=== PATIENT | male | born 1935 | race Native Hawaiian/Other Pacific Islander ===

== ENCOUNTER 2022-06-20 10:51 | Emergency (ER) | payer MEDICARE, OTHER ==
[~2022-06-20] VITALS: Ht 180.3 cm; Wt 90.9 kg
[2022-06-20] MEDS ORDERED: LORA10TA7 PO (10:59)
[2022-06-20] MEDS ORDERED: ASPI-1450 PO (10:59)
[2022-06-20] MEDS ORDERED: TAMS-13 PO (10:59)
[2022-06-20] MEDS ORDERED: LOSA-382 PO (10:59)
[2022-06-20] MEDS ORDERED: PRAV20TA4 PO (10:59)
[2022-06-20] MEDS ORDERED: AMLO-258 PO (10:59)
[2022-06-20] MEDS ORDERED: GABA-1216 PO (10:59)
[2022-06-20] MEDS ORDERED: METF-1211 PO (10:59)
[2022-06-20] MEDS ORDERED: METO25 PO (10:59)
[2022-06-20] MEDS ORDERED: HYDR10TA31 PO (10:59)
[2022-06-20] MEDS ORDERED: BACITRACIN 0.9 GM PACKET OINTMENT TP ONE (12:45)
[2022-06-20] MEDS ORDERED: ACETAMINOPHEN 500 MG TABLET PO ONE (12:45)
[2022-06-20 14:15] VITALS: BP 159/73
[2022-06-20] MEDS ORDERED: MUPI15CR12 TP (16:23)
== END 2022-06-20 16:29 | disposition home or self-care (01) ==
LOC: EMS 11:12
DX: S01.01XA Laceration without foreign body of scalp, initial encounter (principal); S30.0XXA Contusion of lower back and pelvis, initial encounter; E11.9 Type 2 diabetes mellitus without complications; E78.00 Pure hypercholesterolemia, unspecified; I10 Essential (primary) hypertension; N40.0 Benign prostatic hyperplasia without lower urinary tract symptoms; W01.10XA Fall on same level from slipping, tripping and stumbling with subsequent striking against unspecified object, initial encounter; Y93.01 Activity, walking, marching and hiking; Y92.89 Other specified places as the place of occurrence of the external cause; Y99.8 Other external cause status
CPT/HCPCS: 70450; 72070; 72100; 82962; 99284

== ENCOUNTER 2022-06-22 12:54 | Emergency (ER) | payer MEDICARE, OTHER ==
[~2022-06-22] VITALS: Ht 167.6 cm; Wt 77.3 kg
[~2022-06-22 12:54] MED LIST: AMLO-258 PO; ASPI-1450 PO; GABA-1216 PO; HYDR10TA31 PO; LORA10TA7 PO; LOSA-382 PO; METF-1211 PO; METO25 PO; MUPI15CR12 TP; PRAV20TA4 PO; TAMS-13 PO
[2022-06-22 12:57] VITALS: BP 158/74
== END 2022-06-22 14:37 | disposition home or self-care (01) ==
LOC: EMS 13:12
DX: S01.01XA Laceration without foreign body of scalp, initial encounter (principal); E11.9 Type 2 diabetes mellitus without complications; E78.00 Pure hypercholesterolemia, unspecified; I10 Essential (primary) hypertension; N40.0 Benign prostatic hyperplasia without lower urinary tract symptoms; X58.XXXA Exposure to other specified factors, initial encounter; Y93.89 Activity, other specified; Y92.89 Other specified places as the place of occurrence of the external cause; Y99.8 Other external cause status; Z48.00 Encounter for change or removal of nonsurgical wound dressing
CPT/HCPCS: 82962; 99281

== ENCOUNTER 2022-06-27 08:02 | Emergency (ER) | payer MEDICARE, OTHER ==
[~2022-06-27] VITALS: Ht 167.6 cm; Wt 72.7 kg
[2022-06-27 10:24] VITALS: BP 155/70
== END 2022-06-27 10:45 | disposition home or self-care (01) ==
LOC: EMS 08:04
DX: S01.01XD Laceration without foreign body of scalp, subsequent encounter (principal); X58.XXXD Exposure to other specified factors, subsequent encounter; Z48.02 Encounter for removal of sutures; E11.9 Type 2 diabetes mellitus without complications; E78.00 Pure hypercholesterolemia, unspecified; I10 Essential (primary) hypertension; N40.0 Benign prostatic hyperplasia without lower urinary tract symptoms
CPT/HCPCS: 99281; Z7502